=== PATIENT | male | born 2000 | race Hispanic/Latino ===

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

== ENCOUNTER 2022-11-02 13:57 | Emergency (ER) | payer SELFPAY ==
[2022-11-02 17:36] LABS: Bilirubin Negative (Negative); Blood, Urine Negative (Negative); Clarity Clear (Clear); Glucose, Urine (Dipstick) Normal (Negative); Ketone, Urine Negative (Negative); Leukocyte Negative Leu/uL (Negative); Nitrite Negative (Negative); Protein, Urine (Dipstick) Negative (Neg-Trace); Specific Gravity, Urine 1.015 (1.002-1.036); Urobilinogen Normal mg/dL (Less than 2)
== END 2022-11-02 19:31 | disposition home or self-care (01) ==
LOC: ERS 13:57
DX: N43.3 Hydrocele, unspecified (principal)
CPT/HCPCS: 76870; 81003; 93976